=== PATIENT | male | born 1955 | race Caucasian/White ===

== ENCOUNTER → 2017-01-01 | Outpatient (CLI) | payer MEDICARE ==
[~2017-01-01] MED LIST: ASPIRIN CHEWABL81 MG PO; FISH OIL500 MG PO; LORTAB 7.5-3251 EACH PO; MORPHINE SULFAT30 M1 PO; NEURONTIN300 MG PO; NORVASC 5 MG TAB5 MG PO; PRAVACHOL40 MG PO; TRAMADOL HCL E300 M1 PO; ULTRAM50 MG PO; VITAMIN D1000 UNIT PO; ZANTAC150 MG PO; ZITHROMAX250 MG PO
== END ==
LOC: OPSV2 09:25
DX: Z01.810 Encounter for preprocedural cardiovascular examination (principal); I73.9 Peripheral vascular disease, unspecified; Z95.820 Peripheral vascular angioplasty status with implants and grafts; I10 Essential (primary) hypertension
CPT/HCPCS: 93005

== ENCOUNTER → 2017-01-02 | Day surgery (SDC) | payer MEDICARE | END | disposition home or self-care (01) | LOC: OR 06:22 | PROVIDERS: Surgery | PROC: B518YZA Fluoroscopy of Superior Vena Cava using Other Contrast, Guidance (ICD-10-PCS; 2017-01-02) | PROC: 02HV33Z Insertion of Infusion Device into Superior Vena Cava, Percutaneous Approach (ICD-10-PCS; principal; 2017-01-02 10:00) | DX: C34.12 Malignant neoplasm of upper lobe, left bronchus or lung (principal); I10 Essential (primary) hypertension; I73.9 Peripheral vascular disease, unspecified; J45.909 Unspecified asthma, uncomplicated; J44.9 Chronic obstructive pulmonary disease, unspecified; Z86.73 Personal history of transient ischemic attack (TIA), and cerebral infarction without residual deficits; Z87.891 Personal history of nicotine dependence; Z79.82 Long term (current) use of aspirin; Z79.899 Other long term (current) drug therapy; Z90.49 Acquired absence of other specified parts of digestive tract; Z98.890 Other specified postprocedural states | CPT/HCPCS: 71010; 77001; C1769; C1788; J0690; J1644; J2250; J3010; J3370; J7030; J7120 ==

== ENCOUNTER 2017-01-18 21:26 | Emergency (ER) | payer MEDICARE, OTHER ==
[2017-01-19 00:44] LABS: HEMOGLOBIN 9.5 gm/dl (14.0-17.5); RED BLOOD COUNT 3.5 M/UL (4.20-5.50); WHITE BLOOD COUNT 15.2 K/UL (4.5-11.0)
[2017-01-19 01:01] LABS: BUN/CREATININE RATIO 18 (0-10)
== END 2017-01-19 05:38 | disposition home or self-care (01) ==
LOC: ER1 21:26
PROVIDERS: Family Medicine
DX: R06.02 Shortness of breath (principal); R07.89 Other chest pain; Z85.118 Personal history of other malignant neoplasm of bronchus and lung
CPT/HCPCS: 36415; 71010; 71020; 80053; 85025; 85610; 99285; J7050; Q9963